=== PATIENT | female | born 1930 | race Caucasian/White ===

== ENCOUNTER 2017-02-24 16:32 | Inpatient (IN) | payer MEDICARE, OTHER ==
--- NOTE | ~2017-02-24 | HP ---
Unit #: [id number] #: [id number] Patient: VITALIY EMANUEL [id number] [address] [place], [place] [address] [id number] I MR#: [id number] NAME: VITALIY EMANUEL ROOM: 43213 Age: 86 Sex: F Admission Date: 02/24/2017 : 1930 Attending Physician: John Canchola M.D. Primary Care Physician: No Primary Care Physician HISTORY AND PHYSICAL One medication blank. CHIEF COMPLAINT Hallucination. HISTORY OF PRESENT ILLNESS The patient is an 86-year-old female with a past medical history of a bladder stone, nephrolithiasis, atrial fibrillation, chronic anticoagulation, hypertension, breast cancer and hypothyroidism, brought from the [facility] with the confusion. The patient is a poor historian and the history is obtained by speaking to the family at the bedside. The patient has been having hallucinations since Wednesday and was trying to get the urine specimen for the last few days. The patient had the similar complaints in the past with the confusion associated with UTI. The patient was brought to the emergency room for further workup. The patient was found to be septic with a lactate of 3.3 and positive UTI. The patient is being admitted for the above reasons, denies any fever or chills, any Poole catheter, nausea or vomiting. PAST MEDICAL HISTORY History of altered mental status, atrial fibrillation, hypertension, breast cancer, hypothyroidism, GERD, depression. PAST SURGICAL HISTORY Right mastectomy, cholecystectomy, left foot surgery, appendectomy, cataract surgery, cystoscopy with lithotripsy. SOCIAL HISTORY The patient is in a senior living. There is no tobacco, alcohol and is Do Not Resuscitate from the records. FAMILY HISTORY Reviewed and none. ALLERGIES Penicillin, azithromycin, meloxicam, levofloxacin. HOME MEDICATIONS She is on Lipitor, levothyroxine, Lasix, Florastor, Flomax, senna, Remeron, Protonix, prednisone, metoprolol, estrovent, Aricept, digoxin, Flexeril, cranberry, Centrum Silver, calcium, Boniva, Tylenol, amiodarone and the anastrazole. Unit #: [id number] #: [id number] Patient: VITALIY EMANUEL REVIEW OF SYMPTOMS Fourteen-point review of symptoms performed and only pertinent positive findings as described above, remaining are negative. PHYSICAL EXAMINATION GENERAL APPEARANCE: On examination the patient is lying on a bed not in acute distress. VITAL SIGNS: Temperature 98.7, pulse 83, respiratory rate 18, blood pressure 137/68, sating 94% at 2 L per nasal cannula. HEENT: Head atraumatic, normocephalic. Pupils equal, round and reacting to light and accommodation. Dry mucous membranes. NECK: Supple. LUNGS: Decreased air entry at the bases. HEART: Irregular rate and rhythm. Positive for murmur. ABDOMEN: Soft, positive bowel sounds. EXTREMITIES: No cyanosis. No clubbing. DIAGNOSTIC STUDIES IMAGING: Chest x-ray shows stable cardiomegaly. There are increased interstitial markings diffusely in both lungs appearing similar to 08/03/16. This could represent a chronic change or recurrent interstitial change such as edema. There is no effusion, no pneumothorax. Bones are osteopenic with no definite rib fracture. There are degenerative changes in the shoulder. There is a mid thoracic compression fracture suggested at approximately T8 which may be new. Consider thoracic spine series. LABORATORY DATA: Glucose 162, BUN 25, creatinine 1.2, sodium 143, potassium 3.8, chloride 93, bicarb 31, calcium 9.5, AST 31, ALT 33, alkaline phosphatase 81, BNP is 190, lactic acid is 3.3, INR is 1.4, WBC is 15.8, hemoglobin 15.2, hematocrit 47.9, platelets 270, neutrophils 80.6, bands 2%. UA shows 2+ leukocyte esterase, trace protein, 3+ blood, 10 to 25 urine WBCs and 4+ urine bacteria. CARDIOVASCULAR: EKG shows normal sinus rhythm at a rate of 81 beats per minute. Left anterior fascicular block. ASSESSMENT 1. Urinary tract infection. 2. Sepsis. 3. Thoracic compression fracture at the level of T8. 4. Hallucination. PLAN 1. Plan to admit the patient to the inpatient with the telemetry. 2. IV antibiotics with the Rocephin. 3. Enterococcus is colonization, no need for vancomycin. 4. Continue with the sepsis protocol. 5. Repeat the labs again in the morning. 6. Pain control for the compression fracture. Further recommendations will follow as more lab results are available. Dictated by Unit #: [id number] #: [id number] Patient: VITALIY EMANUEL M.D. AMA/cf TD: 02/24/2017 16:31 JOB #: [id number] HISTORY AND PHYSICAL Page 1 of 1 X X HISTORY AND PHYSICAL
--- NOTE | ~2017-02-24 | CR72 ---
[facility] A Service of [facility] RADIOLOGY TEXT RESULTS PATIENT: VITALIY EMANUEL LOCATION: [facility] 303-01 : 30 UNIT #: [id number] AGE: [address]: Hans Mojica MD SEX: F ORDER DR: [id number] [facility] [address] [place], [place] [address] [id number] MR#: [id number] Acc #: [id number] NAME: VITALIY EMANUEL : 1930 SEX: F STUDY DATE/TIME: 02/24/2017 14:05 UNIT: [facility] ROOM: STUDY DESCRIPTION: CR Chest Single View Portable Attending Physician: John Kingston M.D. Ordering Physician: John Kingston M.D. Primary Care Physician: Primary Care Physician No MEDICAL IMAGING REPORT This report is preliminary unless electronic signature is present EXAM Chest portable, 02/24/2017 14:05 hours HISTORY 86-year-old woman with 5-week history of increasing confusion. Patient complains of left-sided rib pain today. COMPARISON 07/25/2016 FINDINGS Portable upright chest demonstrates stable heart size which is mildly increased with tortuous atherosclerotic aorta. There are diffusely increased interstitial markings in the lungs appearing similar to 07/25/2016 and may be chronic. There is no pleural effusion or pneumothorax. No definite rib fracture. The bones are osteopenic. Chronic degenerative changes at the shoulders. IMPRESSION Stable cardiomegaly. There are increased interstitial markings diffusely in both lungs appearing similar to 07/25/2016. This could represent a chronic change or recurrent interstitial change such as edema. There are no effusions. No pneumothorax. Bones are osteopenic with no definite rib fracture. There are degenerative changes in the shoulders. There is a mid thoracic compression fractures suggested at approximately T8 which may be new. Consider thoracic spine series. STAT * RESULT [facility] A Service of [facility] RADIOLOGY TEXT RESULTS PATIENT: VITALIY EMANUEL LOCATION: [facility] 303-01 : 30 UNIT #: [id number] AGE: [address]: Hans Mojica MD SEX: F ORDER DR: Dictated by... Kiara Beauchamp M.D. THIS IS AN ELECTRONICALLY VERIFIED REPORT Kiara Beauchamp M.D. at 02/25/2017 9:34 AM MANUEL/glenis TD: 02/24/2017 14:31 JOB #: [id number] MEDICAL IMAGING REPORT Page 1 of 1 COPY
--- NOTE | ~2017-02-24 | CT98 ---
[facility] A Service of [facility] RADIOLOGY TEXT RESULTS PATIENT: VITALIY EMANUEL LOCATION: [facility] 303- : 30 UNIT #: [id number] AGE: [address]: Hans Mojica MD SEX: F ORDER DR: [id number] [facility] [address]. [place], [place] [address] [id number] I MR#: [id number] Acc #: [id number] NAME: VITALIY EMANUEL : 1930 SEX: F STUDY DATE/TIME: 02/25/2017 16:07 UNIT: A [facility] ROOM: 303 STUDY DESCRIPTION: CT Lumbar Spine Wo Cont Attending Physician: Hans Mojica M.D. Ordering Physician: Hans Mojica M.D. Primary Care Physician: No Primary Care Physician MEDICAL IMAGING REPORT This report is preliminary unless electronic signature is present EXAM Lumbar spine CT. DATE OF EXAM 02/25/2017 INDICATIONS Back pain for 1 month. History of breast cancer. TECHNIQUE Axial images were obtained through the lumbar spine without contrast. Multiplanar reformats were obtained. This CT exam was performed with one or more of the following radiation dose reduction techniques: automatic exposure control, adjustment of mA and/or kV according to patient size, and iterative reconstruction. COMPARISON Comparison is made with CT of abdomen and pelvis with reformatted images dated 07/21/2016. FINDINGS Again seen is lumbar levoscoliosis with dextroscoliosis of the thoracic lumbar junction. Old T12 and L1 compression fractures are again seen and appear grossly stable. No new fractures are identified. There is advanced multilevel hypertrophic facet arthropathy. Broad-based disc bulges are present at multiple levels most severe at L4-5, and L5-S1. There is resultant mild foraminal stenosis at both of these levels. There is moderate central stenosis at 4-5 when combined with facet disease. Note is also made of large bilateral nonobstructing renal stones. There is diffuse atherosclerotic disease and there is sigmoid diverticulosis. IMPRESSION Old compression deformities of T12 and L1. There is scoliosis with [facility] A Service of [facility] RADIOLOGY TEXT RESULTS PATIENT: VITALIY EMANUEL LOCATION: [facility] 303-01 : 30 UNIT #: [id number] AGE: [address]: Hans Mojica MD SEX: F ORDER DR: extensive multilevel degenerative facet arthropathy. There are broad-based disc bulges at multiple levels. Central canal stenosis is most severe at L4-5. Overall, the exam is relatively stable from the abdomen and pelvis CT of 07/21/2016. There are no new fractures. Dictated by... Dontrell Up Jr., M.D. THIS IS AN ELECTRONICALLY VERIFIED REPORT Dontrell Up Jr., M.D. at 02/26/2017 8:53 AM BLANK/janeen TD: 02/25/2017 21:31 JOB #: [id number] MEDICAL IMAGING REPORT Page 1 of 1 COPY
--- NOTE | ~2017-02-24 | CO ---
Unit #: [id number] #: [id number] Patient: VITALIY EMANUEL [id number] [address] [address] [id number] I MR#: [id number] NAME: VITALIY EMANUEL ROOM: 303 Age: 86 Sex: F Admission Date: 02/24/2017 : 1930 Attending Physician: Hans Mojica M.D. Primary Care Physician: Donna Primary Care Physician Consultation Date: 02/26/2017 CONSULTATION REPORT CHIEF COMPLAINT Back pain. HISTORY OF PRESENT ILLNESS The patient is an 86 year old admitted for urinary tract infection. She complained of back pain. CT scan of lumbar spine showed severe stenosis at L4-[address] of the thoracic spine showed new fractures of T3, T7, and T12. By history, the patient reports no pain unless she is up. When she is laying flat, she is comfortable. She takes [place] for pain. PAST MEDICAL HISTORY 1. Alzheimer dementia. 2. Urinary tract infection. 3. Atrial fibrillation. 4. High blood pressure. 5. Breast cancer. 6. Hypothyroidism. 7. Gastroesophageal reflux. 8. Depression. 9. Immobility syndrome. MEDICATIONS 1. Prednisone. 2. Flomax. 3. Tylenol. 4. Amiodarone. 5. Coumadin. 6. Lexapro. 7. Arimidex. 8. Digoxin. 9. Toprol. 10. Aricept. 11. Eye drops. 12. Lipitor. 13. Boniva. 14. Florastor. 15. Multivitamin. 16. Aspirin. 17. Protonix. 18. Synthroid. SOCIAL HISTORY She resides in a long term. She is a nonsmoker, nondrinker. Unit #: [id number] #: [id number] Patient: VITALIY EMANUEL REVIEW OF SYSTEMS A 14-point review of systems is negative except for the above complaints. PHYSICAL EXAMINATION She is lying comfortably in her hospital bed. She is neurologically intact. She has venous stasis ulcer type discoloration in both shins, but she is able to move her legs. CLINICAL IMPRESSION 1. Osteoporosis. 2. T7-T12 compression fractures. RECOMMENDATIONS She is not an ideal surgical candidate. I will get her fitted with a TLSO brace. She will require closed treatment requiring brace of the fractures when ambulatory. Once the brace arrives, physical therapy can attempt to mobilize her with the brace. She is cooperative and agreeable to this treatment plan. Dictated by... Giuseppe Rossi/vanessa TD: 02/26/2017 13:40 JOB #: [id number] CONSULTATION REPORT Page 1 of 1 X [place] Lizarraga MD X CONSULTATION REPORT
--- NOTE | ~2017-02-24 | CT57 ---
[facility] A Service of [facility] & [facility] RADIOLOGY TEXT RESULTS PATIENT: VITALIY EMANUEL LOCATION: [facility] 303- : 30 UNIT #: [id number] AGE: [address]: Hans Mojica MD SEX: F ORDER DR: [id number] [facility] [address]. [place], [place] [address] [id number] I MR#: [id number] Acc #: [id number] NAME: VITALIY EMANUEL : 1930 SEX: F STUDY DATE/TIME: 02/26/2017 11:01 UNIT: [facility] ROOM: 303 STUDY DESCRIPTION: CT Chest Wo Cont Attending Physician: Hans Mojica M.D. Ordering Physician: Hans Mojica M.D. Primary Care Physician: Primary Care Physician No MEDICAL IMAGING REPORT This report is preliminary unless electronic signature is present EXAM CT chest without contrast INDICATION Left rib pain for 2 weeks. Patient does have a history of right-sided breast cancer. There is concern for possible metastases. TECHNIQUE Axial CT images were obtained from the thoracic inlet through the dome of the diaphragm. No intravenous contrast material was administered. This CT examination was performed with one or more of the following radiation dose reduction techniques: automatic exposure control, adjustment of mA and/or kV according to patient size, and iterative reconstruction. FINDINGS Ground-glass infiltrates are identified at the lung apices bilaterally. Clinical significance is uncertain. While they could be infectious or inflammatory in nature, short-term follow up is recommended. This patient has some chronic scarring identified at the lung bases bilaterally with some chronic pleural thickening seen at the left lung base unchanged since June 2016. Thyroid gland is atrophic. Trachea is within normal limits as is the esophagus. There is a trace pericardial effusion. Mediastinal lymph nodes do not appear pathologically enlarged. There are dystrophic calcifications seen involving the aortic valve annulus and there are coronary artery calcifications noted as well. Images through the upper abdomen demonstrate bilateral renal stones. I do not see any other acute abnormality within the upper abdomen. Shotty retroperitoneal nodes I do not think are significantly changed when compared to the June exam. Patient does appear to be osteoporotic. No rib fractures are identified. Patient does have some compression fractures at T12, L1, T7 and probably also T3. Please see the separately dictated report of the CT of the thoracic spine from yesterday for full description of these findings. [facility] A Service of [facility] RADIOLOGY TEXT RESULTS PATIENT: VITALIY EMANUEL LOCATION: [facility] 303-01 : 30 UNIT #: [id number] AGE: [address]: Hans Mojica MD SEX: F ORDER DR: IMPRESSION 1. No convincing evidence of metastatic disease to the thorax on these images. I do not see any rib fractures. 2. Also noted but not mentioned in the report are changes of prior right mastectomy. 3. Chronic pleural thickening seen at the left lung base as well as chronic appearing scarring identified at both lung bases. 4. Patchy, ground glass infiltrates seen within the upper lobes bilaterally. These are indeterminate. They may be infectious or inflammatory in etiology but I would suggest short-term CT follow up in 6 months to document stability or resolution. 5. Multiple vertebral compression fractures. Please see the separately dictated reports for the patient's CT of the thoracic spine and CT of the lumbar spine. 6. Please see the body of the report for any other additional incidental findings. Dictated by... Kristi Mack M.D. THIS IS AN ELECTRONICALLY VERIFIED REPORT Kristi Mack M.D. at 02/26/2017 3:27 PM EDI/liliana TD: 02/26/2017 13:53 JOB #: [id number] MEDICAL IMAGING REPORT Page 1 of 1 COPY
--- NOTE | ~2017-02-24 | EKG ---
PATIENT: VITALIY EMANUEL UNIT #: [id number] Ventricular Rate: 81 BPM Atrial Rate: 81 BPM P-R Interval: 208 ms QRS Duration: 100 ms Q-T Interval: 362 ms QTC Calculation(Bezet): 420 ms P Barnwell: 80 degrees Calculated R Barnwell: -80 degrees Calculated T Barnwell: 120 degrees Diagnosis Line: Normal sinus rhythm Diagnosis Line: Left anterior fascicular block Diagnosis Line: Anterolateral infarct (cited on or before Diagnosis Line: 25-JUL-2016) Diagnosis Line: Abnormal ECG Diagnosis Line: When compared with ECG of 25-JUL-2016 14:04, Diagnosis Line: ST now depressed in Anterolateral leads Diagnosis Line: T wave inversion more evident in Inferior leads Diagnosis Line: Inverted T waves have replaced nonspecific T wave Diagnosis Line: abnormality in Anterior leads Diagnosis Line: Confirmed by EDDIE HEATH MD ([id number]) on 02/28/2017 Diagnosis Line: 3:50:20 PM INTERPRETING MD: IVANA JAUREGUI
--- NOTE | ~2017-02-24 | DS ---
Unit #: [id number] #: [id number] Patient: VITALIY EMANUEL [id number] [address] [address] [id number] I MR#: [id number] NAME: VITALIY EMANUEL ROOM: 303 Age: 86 Sex: F Admission Date: 02/24/2017 : 1930 Discharge Date: 02/27/2017 Attending Physician: Hans Mojica M.D. Primary Care Physician: No Primary Care Physician DISCHARGE SUMMARY REASON FOR ADMISSION Hallucinations, mental status change. HISTORY OF PRESENT ILLNESS/HOSPITAL COURSE Patient is a very pleasant 86-year-old female, underlying history of mild to moderate dementia, bladder stone, nephrolithiasis, atrial fibrillation, chronic anticoagulation, hypertension, prior history of breast cancer, details unclear, hypothyroidism, who was transferred from her [facility] secondary to acute onset of confusion. Family was concerned for possible underlying urinary tract infection and therefore she was admitted. During the time that she was in the emergency room it was noted that her urinalysis was positive. She was placed on Rocephin while here. Her initial lactic acid level was noted to be elevated at 3.3. She was initially placed on sepsis protocol. Her vitals did however remain stable. Her sepsis protocol was later discontinued. She was placed on telemetry floor. Blood cultures did not yield an acute bacterial growth. Her final urine culture did reveal E. coli with sensitivity to the aforementioned Rocephin. It also revealed sensitivity to p.o. Bactrim which she will be given a prescription for at the time of discharge for an additional three days. Through her hospital course it was also noted that she complained of back pain and/or discomfort. There was concern on initial chest x-ray of possibility of T7 as well as T12 compression fracture, therefore patient underwent CT thoracic as well as CT lumbar spine studies without contrast that did reveal on CT thoracic spine two visualized compression fractures at the T7 and T12 of at least 50%. Alignment was deemed normal. On patient's CT of lumbar spine without contrast she did have old compression deformities of T12 and L1. In regard to these results, we placed consultation to Dr. Lizarraga of spine services. He recommended TLSO brace but he did he recommend against kyphoplasty given advanced age and associated comorbid conditions. Appropriate brace has been placed. Patient did complain of left-sided chest discomfort underneath her left breast. As she does have a prior history of breast carcinoma, I did Unit #: [id number] #: [id number] Patient: VITALIY EMANUEL become concerned for possibility of metastatic lesions. Therefore, patient underwent CT chest noncontrast on 02/26/2017 which did reveal no convincing evidence of metastatic disease but there was chronic pleural thickening in the left lung base as well as patchy ground glass infiltrates seen in the upper lobes, determined to be indeterminate in nature, infectious versus inflammatory. Short-term CT in six months was recommended. At this point in time the patient is deemed medically stable to be transferred back to fci. She will be discharged with the understanding that she will have followup CT chest noncontrast in three months to be ordered by the fci physician. I will give her a prescription for bacterium p.o. for an additional three days. She is to wear her brace at all times while she is mobilizing and ambulatory. She does not need to wear her brace while she is in bed. FINAL DISCHARGE DIAGNOSES 1. Mental status change, likely secondary to underlying urinary tract infection. 2. Thoracic 7 and thoracic 12 acute compression fracture. 3. Thoracic 12 and lumbar 1 chronic compression fractures. 4. Mild to moderate dementia, likely multifactorial in origin. 5. Atrial fibrillation history. 6. Prior history of transient ischemic attack. 7. Ground-glass infiltrate, either inflammatory versus acute, seen in bilateral upper lobes with outpatient CT recommended in three months. 8. Prior history of breast carcinoma. 9. Chronic deconditioning. 10. Failure to thrive. 11. Hyperlipidemia history. 12. Hypertension. 13. Gastroesophageal reflux disease. 14. Hypothyroidism. FINAL DISCHARGE MEDICATIONS 1. Prednisone 5 mg p.o. daily. 2. Flomax 0.4 mg p.o. daily. 3. Amiodarone 200 mg daily. 4. Tylenol 650 mg p.o. q.6 h. p.r.n. 5. Remeron 7.5 mg p.o. daily. 6. Arimidex 1 mg p.o. daily. 7. Risperdal 0.25 mg p.o. b.i.d. Hold for sedation. 8. Digoxin 125 mcg p.o. daily. 9. Toprol-XL 12.5 mg p.o. daily. 10. Senokot S 8.6 mg p.o. daily. 11. Aricept 5 mg p.o. daily. 12. Lasix 40 mg p.o. daily. 13. Lipitor 10 mg p.o. q.h.s. 14. Boniva 150 mg p.o. q. month. 15. Florastor 250 mg p.o. daily. 16. Multivitamin daily. 17. Protonix 40 mg p.o. daily. 18. Os-Gt 500 plus D one tablet p.o. daily. Unit #: [id number] #: [id number] Patient: VITALIY EMANUEL 19. Flexeril 5 mg p.o. daily p.r.n. only. 20. Synthroid 125 mcg p.o. daily. 21. Estroven p.o. daily. 22. Bactrim single strength one tablet p.o. b.i.d. x3 days. DISCHARGE CONDITION Stable. DISCHARGE DISPOSITION To fci. Dictated by... Giuseppe Young/jonah TD: 02/27/2017 15:08 JOB #: [id number] DISCHARGE SUMMARY Page 1 of 1 X Hans Mojica MD X DISCHARGE SUMMARY
--- NOTE | ~2017-02-24 | CO ---
Unit #: [id number] #: [id number] Patient: ROLLY EMANUEL [id number] [facility]. [place], [place] [address] [id number] I MR#: [id number] NAME: ROLLY EMANUEL ROOM: 303 Age: 86 Sex: F Admission Date: 02/24/2017 : 1930 Attending Physician: Hans Mojica M.D. Consultation Date: 02/26/2017 CONSULTATION REPORT REASON FOR CONSULTATION Hallucination, altered mental status, dementia. HISTORY OF PRESENT ILLNESS Ms. Rolly Emanuel is an 86-year-old white female, seen on 02/26/2017 in room 303 at [facility]. The patient dressed casually, thin built, lying comfortably in bed, somewhat restless. The patient's daughter was at bedside. The patient was able to identify her daughter, but confused, reported in lot of pain. The patient was agitated, anxious, nervous, but denied any suicidal or homicidal ideation, but reported seeing things, seeing rats, visual hallucination. Vital signs; temperature 97.9, pulse 68, respirations 18, and blood pressure 104/58, oxygen saturation 96%. The patient is a resident of retirement, has a good support from family, unable to give coherent history. The patient diagnosed with compression fracture of T3, T7, T12. PAST PSYCHIATRIC HISTORY Remarkable for history of dementia. MEDICAL HISTORY AND MEDICATION HISTORY The patient has a history of Alzheimer dementia, urinary tract infection, atrial fibrillation, hypertension, breast cancer, hypothyroidism, gastroesophageal reflux disease, immobility syndrome. The patient is currently on prednisone, Flomax, Tylenol, amiodarone, Coumadin Lexapro, Arimidex, digoxin, Toprol, Aricept, multivitamin, aspirin, Protonix, and Synthroid. FAMILY HISTORY AND SOCIAL HISTORY The patient has a good support system. The patient resides in a retirement. No history of substance abuse. No history of abuse. REVIEW OF SYSTEMS Complete review of systems is remarkable for confusion and pain. MENTAL STATUS EXAMINATION Vital signs; please see above. General appearance, the patient is thin built, dressed casually in hospital attire, seemed somewhat restless and anxious. Attention span and concentration, poor. Speech, circumstantial. Oriented in self. Mood and affect were labile. Thought process, circumstantial. Thought content, denied any thoughts of harming self or others, but reported visual hallucination. Denied any command hallucination. Recent and remote memory, poor. Language, fair. Fund of knowledge, poor. Insight and judgment, impaired. Unit #: [id number] #: [id number] Patient: ROLLY EMANUEL DIAGNOSES Psychiatric: Major neurocognitive disorder secondary to Alzheimer disease with behavioral disturbances, F02.81; psychosis, not otherwise specified, F29.0. Secondary diagnosis: Deferred. Medical diagnosis: Please refer to H and P. Stressors: Psychosocial stressors. ASSESSMENT/PLAN 1. Supportive psychotherapy and psychoeducation provided to the patient, but the patient unable to comprehend much. 2. Answer all the questions of the patient's daughter, explained about medication, and course and prognosis of illness. Advised at this time to start the patient on Risperdal 0.25 mg b.i.d. and one dose of Risperdal 0.25 mg now. We will continue to follow. Please feel free to call if any questions, telephone #[phone]. Dictated by... Giuseppe Cartagena/jamaal TD: 02/26/2017 21:34 JOB #: [id number] CONSULTATION REPORT Page 1 of 1 X Derrick Frederick MD X CONSULTATION REPORT
--- NOTE | ~2017-02-24 | CT122 ---
[facility] A Service of [facility] RADIOLOGY TEXT RESULTS PATIENT: VITALIY EMANUEL LOCATION: [facility] 303- : 30 UNIT #: [id number] AGE: [address]: Hans Mojica MD SEX: F ORDER DR: [id number] [facility] [place] [facility]. [place], [place] [address] [id number] I MR#: [id number] Acc #: [id number] NAME: VITALIY EMANUEL : 1930 SEX: F STUDY DATE/TIME: 02/25/2017 16:07 UNIT: [address] ROOM: [facility] STUDY DESCRIPTION: CT Thoracic Spine Wo Cont Attending Physician: Hans Mojica M.D. Ordering Physician: Hans Mojica M.D. Primary Care Physician: Primary Care Physician No MEDICAL IMAGING REPORT This report is preliminary unless electronic signature is present EXAM CT scan of the thoracic spine without contrast INDICATIONS Back pain and suspected compression fractures pain for 1 month. COMPARISON None. TECHNIQUE This CT exam was performed with one or more of the following radiation dose reduction techniques: automatic control, adjustment of mA and/or kV according to patient size, and iterative reconstruction. FINDINGS Axial 2 mm images were obtained through the thoracic spine and sagittal and coronal reconstructions were generated. There are at least 2 right-sided renal stones measuring up to 10 mm and 14 mm in diameter. There is a 50% compression fracture of T7. This appears acute. This seemed to be some acute fracture planes visible. The bodies compress about 50% and it is increased in density. T12 shows a more pronounced compression fracture which is possibly new as well. The endplate appears to have some acute compression lines with it. There other vertebral bodies are normal in height except for a minimal loss of height of T3 affecting the superior endplate only. IMPRESSION 1. Compression fractures of T7 and T12 that appear recent. They both compress at least 50%. There may be minimal compression of the superior endplate of T3 as well. 2. The alignment is normal. [facility] A Service [facility] RADIOLOGY TEXT RESULTS PATIENT: VITALIY EMANUEL LOCATION: [facility] 303-01 : 30 UNIT #: [id number] AGE: [address]: Hans Mojica MD SEX: F ORDER DR: 3. There is no bony spinal canal stenosis. 4. Renal stones. Dictated by... Giovani Urias M.D. THIS IS AN ELECTRONICALLY VERIFIED REPORT Giovani Urias M.D. at 02/26/2017 3:28 PM NOEMI/rnr TD: 02/25/2017 19:02 JOB #: [id number] MEDICAL IMAGING REPORT Page 1 of 1 COPY
[2017-02-24 14:40] LABS: URINE SOURCE CLEAN CATCH
[2017-02-24 14:44] LABS: URINE APPEARANCE CLOUDY; URINE BILIRUBIN NEG (NEG); URINE BLOOD 3+ (NEG); URINE COLOR DK YELLOW; URINE GLUCOSE NEG (NEG); URINE KETONE TRACE (NEG); URINE LEUKOCYTE ESTERASE 2+ (NEG); URINE NITRATE NEG (NEG); URINE PROTEIN TRACE (NEG)
[2017-02-24 14:47] LABS: CULTURE INDICATED? YES; URINE BACTERIA AUWI 4+ (NEGATIVE); URINE SQUAMOUS EPITHELIAL CELL OCC /[HPF]
[2017-02-24 14:50] LABS: POC - CKMB 2.4 ng/mL (0.0-7.9); POC - TROPONIN <0.05 ng/mL (<=0.05)
[2017-02-24 14:54] LABS: BASOPHIL% 0.3 % (0-2.5); EOSINOPHIL# 0.1 X10e3 (0-0.7); EOSINOPHIL% 0.5 % (0.0-7.0); HEMATOCRIT 47.9 % (35.0-45.0); HEMOGLOBIN 15.2 gm/dL (12.0-16.0); LYMPHOCYTE# 1.6 X10e3 (1.0-3.5); LYMPHOCYTE% 10.1 % (17.0-45.0); MEAN CELL VOLUME 93.7 FL (83-96); MEAN CORPUSCULAR HEMOGLOBIN 29.8 PG (28-34); MEAN CORPUSCULAR HGB CONC 31.8 g/dL (30-36); MEAN PLATELET VOLUME 9.4 FL (6.5-11.5); MONOCYTE# 1.3 X10e3 (0-1.0); MONOCYTE% 8.5 % (3.0-12.0); NEUTROPHIL# 12.7 X10e3 (1.5-7.1); NEUTROPHIL% 80.6 % (40-75); PLATELET COUNT 270 X10e3 (140-420); RED BLOOD COUNT 5.11 X10e (3.90-5.30); RED CELL DISTRIBUTION WIDTH 16.5 % (11.0-15.5); WHITE BLOOD COUNT 15.8 X10e3 (4.0-10.5)
[2017-02-24 14:58] LABS: DIFF IND YES
[2017-02-24 14:59] LABS: URINE MUCUS PRESENT
[2017-02-24 15:02] LABS: INR 1.4; PROTHROMBIN TIME (PATIENT) 14.9 SECONDS (9.6-11.5)
[2017-02-24 15:08] LABS: BILIRUBIN, DIRECT 0.1 mg/dL (0.0-0.2); BILIRUBIN,INDIRECT 0.8 mg/dL (0.0-0.9); BILIRUBIN,TOTAL 0.9 mg/dL (0.2-2.0); BUN/CREATININE RATIO 20.83; CALCIUM SERUM 9.5 mg/dL (8.4-10.2); CREATININE SERUM 1.2 mg/dL (0.6-1.4); GLOM FILT RATE Estimated 40.9 mL/min (>60); POTASSIUM 3.8 mmol/L (3.5-5.1); PROTEIN TOTAL SERUM 7.8 g/dL (6.0-8.3)
[2017-02-24 15:09] LABS: PLATELET ESTIMATE NORMAL (NORMAL); RBC NORMAL YES
[~2017-02-24 16:32] MED LIST: AMIODARONE HCL200 MG PO; AMIODARONE PO; ANASTROZOLE1 MG PO; ARICEPT5 M2 PO; ARICEPT5 MG PO; ARIMIDEX1 MG PO; ASPIRIN PO; ASPIRIN81 M2 PO; ATIVAN0.5 M1 IV; B-COMPLEX W-VIT1 TAB PO; BONIVA150 MG PO; CALCIUM + D3 E1 EACH PO; CALCIUM 600 +1 EAC1 PO; CENTRUM SILVER PO; CERTAVITE-LUTEI1 TA1 PO; COUMADIN PO; COUMADIN1 MG; COUMADIN1 MG PO; CRANBERRY500 M1 PO; DIGOX125 MCG PO; DIGOXIN125 MCG PO; ESTROVEN PO; FISH OIL 1,0001 CAP PO; FISH OIL 1,0001 EAC1 PO; FLEXERIL PO; FLOMAX0.4 M1 DOB; FLOMAX0.4 M1 PO; FLORASTOR PO; FLORASTOR250 M1 PO; GARLIC PO; GARLIC1 TAB PO; LASIX PO; LATANOPROST2.5 ML OU; LEVO-T125 MCG PO; LEXAPRO PO; LEXAPRO20 MG PO; LIPITOR PO; MAPAP325 M1 PO; MELATONIN5 M1 PO; NEPHROCAPS CAPSU1 MG PO; PACERONE100 MG PO; PREDNISONE10 MG PO; PREDNISONE5 M1 PO; PROTONIX PO; PROTONIX40 M1 PO; REMERON PO; REMERON15 MG PO; SENNA-TABS8.6 MG PO; SENNA8.6 M1 PO; SEROQUEL50 MG DOB; SEROQUEL50 MG PO; SYNTHROID PO; SYNTHROID75 MCG PO; TIMOPTIC 0.5% OP5 ML OD; TIMOPTIC5 ML OP; TIROSINT125 MCG PO; TOPROL XL 50 MG50 M1 PO; TOPROL XL PO; TRAVATAN5 ML OP; TYLENOL325 M1 PO; VAGISIL CREAM28 GM TOP; VESICARE PO; VIT E PO; VITAMIN C PO; VITAMIN C500 M1 PO; VITAMIN D 4001 UDTAB PO; VITAMIN D2000 UNI1 PO; VITAMIN E1000 UNI2 PO; XALATAN OU
[2017-02-25 06:12] LABS: HEMATOCRIT 40.5 % (35.0-45.0); MEAN CORPUSCULAR HEMOGLOBIN 29.2 PG (28-34); MEAN PLATELET VOLUME 8.8 FL (6.5-11.5); RED BLOOD COUNT 4.31 X10e (3.90-5.30); RED CELL DISTRIBUTION WIDTH 16.2 % (11.0-15.5); WHITE BLOOD COUNT 14.8 X10e3 (4.0-10.5)
[2017-02-25 06:18] LABS: HEMOGLOBIN 12.6 gm/dL (12.0-16.0)
[2017-02-25 07:03] LABS: BUN/CREATININE RATIO 23.75; CALCIUM SERUM 8.3 mg/dL (8.4-10.2); CREATININE SERUM 0.8 mg/dL (0.6-1.4); GLOM FILT RATE Estimated 66.8 mL/min (>60); POTASSIUM 3.4 mmol/L (3.5-5.1)
[2017-02-26 04:43] LABS: HEMATOCRIT 42.1 % (35.0-45.0); HEMOGLOBIN 13.1 gm/dL (12.0-16.0); MEAN CELL VOLUME 94.8 FL (83-96); MEAN CORPUSCULAR HEMOGLOBIN 29.6 PG (28-34); MEAN CORPUSCULAR HGB CONC 31.3 g/dL (30-36); MEAN PLATELET VOLUME 9.2 FL (6.5-11.5); RED BLOOD COUNT 4.44 X10e (3.90-5.30); RED CELL DISTRIBUTION WIDTH 16.5 % (11.0-15.5); WHITE BLOOD COUNT 13.2 X10e3 (4.0-10.5)
[2017-02-26 05:02] LABS: BUN/CREATININE RATIO 22.5; CALCIUM SERUM 8.5 mg/dL (8.4-10.2); CREATININE SERUM 0.8 mg/dL (0.6-1.4); GLOM FILT RATE Estimated 66.8 mL/min (>60); POTASSIUM 3.9 mmol/L (3.5-5.1)
[2017-02-27 06:05] LABS: HEMATOCRIT 41.8 % (35.0-45.0); HEMOGLOBIN 13.4 gm/dL (12.0-16.0); MEAN CELL VOLUME 93.1 FL (83-96); MEAN CORPUSCULAR HEMOGLOBIN 29.8 PG (28-34); MEAN PLATELET VOLUME 9.1 FL (6.5-11.5); RED BLOOD COUNT 4.49 X10e (3.90-5.30); RED CELL DISTRIBUTION WIDTH 16.4 % (11.0-15.5); WHITE BLOOD COUNT 16.9 X10e3 (4.0-10.5)
[2017-02-27 06:59] LABS: BUN/CREATININE RATIO 24.44; CALCIUM SERUM 9.2 mg/dL (8.4-10.2); CREATININE SERUM 0.9 mg/dL (0.6-1.4); GLOM FILT RATE Estimated 57.9 mL/min (>60); POTASSIUM 4.1 mmol/L (3.5-5.1)
== END 2017-02-27 22:48 | DRG 689 ==
LOC: CED 16:32 → CEDOF 16:41 → C3A PCU 17:26
PROVIDERS: Emergency Medicine; Family Medicine; Internal Medicine
DX: N39.0 Urinary tract infection, site not specified (principal); G92 Toxic encephalopathy; M48.54XA Collapsed vertebra, not elsewhere classified, thoracic region, initial encounter for fracture; M48.56XA Collapsed vertebra, not elsewhere classified, lumbar region, initial encounter for fracture; G30.9 Alzheimer's disease, unspecified; F02.81 Dementia in other diseases classified elsewhere, unspecified severity, with behavioral disturbance; B96.20 Unspecified Escherichia coli [E. coli] as the cause of diseases classified elsewhere; I48.91 Unspecified atrial fibrillation; I10 Essential (primary) hypertension; E03.9 Hypothyroidism, unspecified; K21.9 Gastro-esophageal reflux disease without esophagitis; F32.9 Major depressive disorder, single episode, unspecified; M62.3 Immobility syndrome (paraplegic); M81.0 Age-related osteoporosis without current pathological fracture; I87.8 Other specified disorders of veins; F29 Unspecified psychosis not due to a substance or known physiological condition; R62.7 Adult failure to thrive; Z86.73 Personal history of transient ischemic attack (TIA), and cerebral infarction without residual deficits; E78.5 Hyperlipidemia, unspecified; Z90.49 Acquired absence of other specified parts of digestive tract; Z88.0 Allergy status to penicillin; Z88.1 Allergy status to other antibiotic agents; Z88.8 Allergy status to other drugs, medicaments and biological substances; Z85.3 Personal history of malignant neoplasm of breast; Z90.11 Acquired absence of right breast and nipple
CPT/HCPCS: 36415; 51702; 71010; 71250; 72128; 72131; 80048; 80076; 81003; 82553; 82607; 83605; 84443; 84484; 85025; 85027; 85610; 85730; 87040; 87086; 87088; 87186; 92610; 93005; 94760; 99285; G8996-GN; G8997-GN; G8998-GN; J0696; J1630; J3370

== ENCOUNTER 2017-03-05 12:15 | Inpatient (IN) | payer MEDICARE, OTHER ==
--- NOTE | ~2017-03-05 | CT57 ---
[facility] A Service of [facility] RADIOLOGY TEXT RESULTS PATIENT: VITALIY EMANUEL LOCATION: [facility] 565-01 : 30 UNIT #: [id number] AGE: [address]: Hans Mojica MD SEX: F ORDER DR: [id number] [facility] [address]. [place], [place] [address] [id number] I MR#: [id number] Acc #: [id number] NAME: VITALIY EMANUEL : 1930 SEX: F STUDY DATE/TIME: 03/06/2017 9:33 UNIT: [facility] ROOM: [facility] STUDY DESCRIPTION: CT Chest Wo Cont Attending Physician: Hans Mojica M.D. Ordering Physician: Hans Mojica M.D. Primary Care Physician: No Primary Care Physician MEDICAL IMAGING REPORT This report is preliminary unless electronic signature is present EXAM CT of the chest without contrast. INDICATION Shortness of breath for 1 week. Bilateral upper lobe infiltrates. Follow up. TECHNIQUE CT of the chest was performed without contrast. Coronal and sagittal reformatted images were obtained. This CT exam was performed with one or more of the following radiation dose reduction techniques: automatic exposure control, adjustment of mA and/or kV according to patient size, and iterative reconstruction. COMPARISON Comparison was made with 02/26/2017. FINDINGS Since the previous study, there has been improvement within the bilateral upper lobe ground-glass infiltrates. There is some persistent mild infiltrate within the anterior left upper lobe on image 30, and also in the right upper lobe on image 19. But, overall, the appearance of the upper lobes has improved. There is mild worsening of the ground-glass infiltrates within the superior segment of the right lower lobe. There is increased linear atelectasis within the dependent portion of the right lower lobe. There is stable atelectasis within the left lower lobe. There is no suspicious lymphadenopathy. There is no pleural effusion. Coronary artery calcifications. Limited imaging of the upper abdomen demonstrates bilateral large nonobstructing kidney stones. Bone windows demonstrate degenerative changes of the spine with stable compression deformities and scoliosis. [facility] A Service of [facility] RADIOLOGY TEXT RESULTS PATIENT: VITALIY EMANUEL LOCATION: [facility] 565-01 : 30 UNIT #: [id number] AGE: [address]: Hans Mojica MD SEX: F ORDER DR: IMPRESSION 1. Since the previous chest CT from 02/26/2017, there has been interval improvement in the appearance of the upper lobes with decrease in ground-glass infiltrates and they are nearly resolved. 2. There is slight worsening of ground-glass infiltrates within the superior segment of the right lower lobe. Dictated by... Sandor Jean M.D. THIS IS AN ELECTRONICALLY VERIFIED REPORT Sandor Jean M.D. at 03/07/2017 3:47 PM CARLOS/janeen TD: 03/06/2017 20:55 JOB #: [id number] MEDICAL IMAGING REPORT Page 1 of 1 COPY
--- NOTE | ~2017-03-05 | EKG ---
PATIENT: VITALIY EMANUEL UNIT #: [id number] Ventricular Rate: 72 BPM Atrial Rate: 72 BPM P-R Interval: 192 ms QRS Duration: 92 ms Q-T Interval: 410 ms QTC Calculation(Bezet): 448 ms P [place]: 80 degrees Calculated R [place]: -73 degrees Calculated T [place]: 8 degrees Diagnosis Line: Normal sinus rhythm Diagnosis Line: Left axis deviation Diagnosis Line: Possible Lateral infarct (cited on or before Diagnosis Line: 25-JUL-2016) Diagnosis Line: Abnormal ECG Diagnosis Line: When compared with ECG of 24-FEB-2017 14:01, Diagnosis Line: Questionable change in initial forces of Anterior Diagnosis Line: leads Diagnosis Line: T wave inversion no longer evident in Anterior Diagnosis Line: leads Diagnosis Line: Confirmed by EDDIE HEATH MD ([id number]) on 03/05/2017 Diagnosis Line: 8:12:15 PM INTERPRETING MD: IVANA JAUREGUI
--- NOTE | ~2017-03-05 | CT71 ---
[facility] A Service of [facility] RADIOLOGY TEXT RESULTS PATIENT: VITALIY EMANUEL LOCATION: [facility] 565-01 : 30 UNIT #: [id number] AGE: [address]: Hans Mojica MD SEX: F ORDER DR: [id number] [facility] [address] [place], [place] [address] [id number] MR#: [id number] Acc #: [id number] NAME: VITALIY EMANUEL : 1930 SEX: F STUDY DATE/TIME: 03/05/2017 14:00 UNIT: [facility] ROOM: STUDY DESCRIPTION: CT Head Wo Contrast Attending Physician: Ruby Gerard M.D. Ordering Physician: Ruby Gerard M.D. Primary Care Physician: No Primary Care Physician MEDICAL IMAGING REPORT This report is preliminary unless electronic signature is present EXAM CT head 03/05/2017 HISTORY Confusion since 03/04/2017 having hallucinations since 03/04/2017. TECHNIQUE CT head performed skull base through vertex without intravenous contrast. This CT exam was performed with one or more of the following radiation dose reduction techniques: automatic exposure control, adjustment of mA and/or kV according to patient size, and iterative reconstruction. COMPARISON STUDIES Comparison 07/25/2016. FINDINGS Brainstem unremarkable. Areas of encephalomalacic change bilateral cerebellar hemispheres are stable and likely reflect prior vascular insults. The cerebellum and cerebral hemispheres show overall preservation of gonzales matter-white matter differentiation. There is no intracranial hemorrhage. No evidence of acute cortical ischemia. Extensive periventricular and deep white matter tract hypodensities bilaterally most consistent with sequelae of chronic microvascular ischemia. 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 Associated encephalomalacic change. Midline structures nondisplaced. No acute-appearing basal ganglia abnormality. Chronic lacunar infarct right putamen. This has developed in the interval from July 2016 but its appearance is clearly chronic in time course. The ventricles, cisterns and sulci show mild to moderate generalized enlargement consistent with generalized atrophy. Visualized paranasal sinuses and mastoid air cells notable for air-fluid levels and opacification in some left mastoid air cells suggesting acute mastoiditis. More pronounced than on prior study. [facility] A Service of [facility] RADIOLOGY TEXT RESULTS PATIENT: VITALIY EMANUEL [id number] UNIT #: [id number] AGE: [address]: Hans Mojica MD SEX: F ORDER DR: No fracture. IMPRESSION 1. No clearly acute abnormality seen in brain. If patient has ongoing neurologic symptoms, consider follow up imaging, preferably with MRI if patient is candidate. 2. Chronic changes in brain include following: Mild to moderate generalized atrophy, extensive periventricular and deep white matter tract probable sequelae of chronic microvascular ischemia, chronic infarcts in the right parietal vertex and bilateral cerebellar hemispheres, chronic lacunar infarct right putamen, cavernous carotid and distal vertebral arterial calcifications. 3. Opacification of a few left mastoid air cells with air-fluid levels present suggesting acute left mastoiditis. Dictated by... North Reeves M.D. THIS IS AN ELECTRONICALLY VERIFIED REPORT North Reeves M.D. at 03/08/2017 8:19 PM [place] TD: 03/05/2017 18:21 JOB #: [id number] MEDICAL IMAGING REPORT Page 1 of 1 COPY
--- NOTE | ~2017-03-05 | HP ---
Unit #: [id number] #: [id number] Patient: VITALIY EMANUEL [id number] [facility] [place] [facility]. [place], [place] [address] [id number] I MR#: [id number] NAME: VITALIY EMANUEL ROOM: 31827 Age: 86 Sex: F Admission Date: 03/05/2017 : 1930 Attending Physician: Yvrsoe Deshpande M.D. Primary Care Physician: Primary Care Physician No HISTORY AND PHYSICAL CHIEF COMPLAINT Altered mental status. HISTORY OF PRESENT ILLNESS The patient is an 86-year-old female with past medical history of atrial fibrillation, chronic anticoagulation, hypertension, bladder stone, breast cancer, hypothyroidism, GERD, depression, dementia, who presented to the emergency department from the long term for evaluation of the above. Of note, the patient was hospitalized at [facility] 02/24 through 02/27/2017 for altered mental status and sepsis secondary to urinary tract infection. Urine culture from that admission grew greater than 100,000 E coli that was pansensitive. She was discharged to the long term on Bactrim for an additional three days. The patient's daughter is at bedside. She states that she was doing well for a couple of days. On the day prior to admission, she started having increasing confusion with visual hallucinations. She, per the daughter, did not have any fever, no cough or cold symptoms. She was not complaining of abdominal pain. She had been eating, no vomiting, no difficulty with swallowing. The patient's daughter states that it is similar to when she has had a urinary tract infection in the past. In the emergency department, initial temperature was 98.5, pulse 75, blood pressure 126/61, oxygen saturation was 88% on room air. Chest x-ray showed possible edema with stable mild cardiomegaly. Urinalysis shows findings concerning for possible urinary tract infection. She was given 1 liter of normal saline as well as 2 grams of Rocephin. Additionally, she received 5 mg of Mauldin. She is being admitted to [facility] for evaluation and further treatment. PAST MEDICAL HISTORY 1. Admission to [facility] 02/24 through 02/27/2017 for altered mental status secondary to urinary tract infection and sepsis. She was discharged to the long term on Bactrim. During that hospital stay, a CT of the chest was done and showed ground-glass infiltrates within the upper lobes infectious versus inflammatory in etiology. Short-term CT follow up in six months was recommended. Additionally, she was found to have several compression fractures. She was apparently seen in consultation by Dr. Lizarraga. A brace was recommended. He recommended against kyphoplasty given age and associated comorbid conditions. 2. Atrial fibrillation, previously on chronic anticoagulation with Coumadin. The patient's daughter was not aware that Coumadin had Unit #: [id number] #: [id number] Patient: VITALIY EMANUEL been discontinued. Review of [facility] shows that the patient was discharged on 07/27/2016 back to the long term on Coumadin. However, the History and Physical from 02/24/2017 does not include Coumadin as a home medication nor does the discharge summary from 02/27/2017 list Coumadin as a discharge medication. It is unclear if she was taken off this medication at the long term. This will need to be clarified. 3. Hypertension. 4. History of bladder stone. 5. Breast cancer, status post mastectomy. 6. Hypothyroidism. 7. GERD. 8. Depression. 9. Dementia. PAST SURGICAL HISTORY 1. Right mastectomy. 2. Cholecystectomy. 3. Left foot surgery. 4. Appendectomy. 5. Cataract surgery. 6. Cystoscopy with lithotripsy. ALLERGIES 1. Penicillin. 2. Azithromycin. 3. Meloxicam. 4. Levofloxacin. HOME MEDICATIONS Include: 1. Senna. 2. Remeron. 3. Protonix. 4. Prednisone. 5. Toprol XL. 6. Lipitor. 7. Levothyroxine. 8. Lasix. 9. Florastor. 10. Flomax. 11. Estroven. 12. Aricept. 13. Digoxin. 14. Flexeril. 15. Cranberry. 16. Centrum Silver. 17. Calcium plus D. 18. Boniva. 19. Tylenol. 20. Amiodarone. 21. Anastrazole. 22. Coumadin. 23. Latanoprost eye drops. 24. Macrodantin. 25. Hydrocodone/acetaminophen. 26. Risperdal. Unit #: [id number] #: [id number] Patient: VITALIY EMANUEL Home medications will need to be reviewed and verified. SOCIAL HISTORY The patient is in a long term. She is in a wheelchair. There is no tobacco or alcohol use. Her code status is a DO NOT RESUSCITATE. FAMILY HISTORY Noncontributory secondary to age. REVIEW OF SYSTEMS A complete review of systems is somewhat limited from the patient due to altered mental status but negative except as indicated in the HPI per family. PHYSICAL EXAMINATION VITAL SIGNS: Temperature 98.5, pulse 75, respirations 19, blood pressure 126/61, oxygen saturation 88% on room air. GENERAL: The patient is a female who is awake and alert, she is inattentive and somewhat restless. HEENT: Head is atraumatic. Mucous membranes are moist. NECK: Supple. Trachea is midline. LUNGS: Decreased breath sounds bilaterally. Breathing is not labored. HEART: Regular rate and rhythm. ABDOMEN: Soft, nontender. Bowel sounds present in all four quadrants. EXTREMITIES: Nontender with no pedal edema. NEUROLOGIC: Patient is oriented to person only. She knows she is in a hospital bed but thought she was at [facility]. She does not know the year. She follows commands. PSYCHIATRIC: Patient is cooperative. She is mildly agitated and is picking at various items in her bed. DIAGNOSTIC STUDIES LABORATORY: Troponin is less than 0.05. Urinalysis is notable for 1+ leukocyte esterase, 1+ blood, 10-25 rbc's, 5-10 wbc's. Complete blood count notable for white blood cell count of 11.2. INR 1.1. Lactic acid 1.2. Digoxin level 1.6. Comprehensive metabolic panel notable for chloride 94, CO2 is 36, AST 95, ALT 113, albumin 3.4. IMAGING: CT of the head shows nothing acute. Chest x-ray shows stable cardiomegaly and possible increase in vascular congestion. CARDIOVASCULAR: EKG shows normal sinus rhythm with rate of 72 beats per minute. ASSESSMENT The patient is an 86-year-old female with: 1. Altered mental status. 2. Possible urinary tract infection. The patient had a urine culture 02/24/2017 that grew greater than 100,000 E coli that was pansensitive. 3. Possible congestive heart failure. Chest x-ray is showing congestion. She is on Lasix from the long term. I do not see an echocardiogram in [facility]. The family was not aware of her ever being diagnosed with congestive heart failure. 4. Acute respiratory failure, hypoxic with oxygen saturation 88% on room air. Unit #: [id number] #: [id number] Patient: VITALIY EMANUEL 5. Transaminitis, possible passive congestion. 6. Atrial fibrillation, currently in sinus rhythm. 7. Chronic anticoagulation with Coumadin. The patient, on the list from the long term, is on Coumadin 1 mg daily. However, INR is subtherapeutic at 1.1. 8. Hypertension. 9. History of bladder stone. 10. Breast cancer, status post mastectomy. 11. Hypothyroidism. 12. Gastroesophageal reflux disease. 13. Depression. 14. Dementia. 15. History of compression fractures. Back brace was recommended. PLAN 1. Admit to intermediate level. 2. 2-gram sodium 1800 fluid restricted heart healthy diet if passes bedside swallow. 3. TSH, B12 and folate. 4. Neuro checks. 5. Bedrest and fall precautions. 6. Blood cultures x2. 7. Urine culture and sensitivity on urine in the lab. 8. Rocephin 1 gram IV daily pending results of urine culture. 9. 2D echo if not done within the past year. 10. Check BNP. 11. Strict I's and O's. 12. Daily weights. 13. Will change home dose of Lasix to IV (40 mg IV daily) with first dose now. 14. Serial cardiac enzymes. 15. Repeat labs in the morning including INR. 16. May need to adjust Coumadin. 17. Regarding code status, the patient is a DO NOT RESUSCITATE. Dictated by Yvrose Deshpande M.D. NEIDA/chari TD: 03/05/2017 20:57 JOB #: [id number] HISTORY AND PHYSICAL Page 1 of 1 X Yvrose Deshpande MD X HISTORY AND PHYSICAL
--- NOTE | ~2017-03-05 | DS ---
Unit #: [id number] #: [id number] Patient: VITALIY EMANUEL [id number] [address] [place], [place] [address] [id number] MR#: [id number] NAME: VITALIY EMANUEL ROOM: 56 Age: 86 Sex: F Admission Date: 03/05/2017 : 1930 Discharge Date: 03/08/2017 Attending Physician: Hans Mojica M.D. Primary Care Physician: No Primary Care Physician DISCHARGE SUMMARY REASON FOR ADMISSION Altered mental status. HISTORY OF PRESENT ILLNESS/HOSPITAL COURSE The patient is a very pleasant 86-year-old female with underlying history of atrial fibrillation, not on chronic anticoagulation secondary to fall risk, hypertension, breast carcinoma, hypothyroidism, gastroesophageal reflux disease, depression and moderate to severe dementia. The patient presented secondary to mental status change. She had recently been admitted to our hospital in the early part of February for similar circumstances secondary to urinary tract infection. Apparently she was discharged at that point in time and treated appropriately on antibiotics. However, while she was at the rehab facility she began developing mental status change and/or decline and subsequently presented back to the hospital for further evaluation. Chest x-ray initially performed in the emergency room read the possibility of edema, stable mild cardiomegaly, but she was hypoxic. Urinalysis was mildly positive as well. She was initially given 1 liter of normal saline, Rocephin and evaluated through her hospital course. Her final urine culture did not reveal any acute bacterial growth. Blood cultures through her hospital stay did not yield any bacterial growth as well. Cardiac enzymes were cycled and otherwise unremarkable. CT of the chest without contrast was performed on 03/06/2017 in regard to followup secondary to upper lobe ground glass infiltrates, which were seen on previous admission. These are likely felt to be secondary to inflammatory response and likely nonspecific, but a close outpatient followup was recommended with repeat CT noncontrast chest in six months. Of note, however, that was a slight worsening of ground glass infiltrates in the superior segment of the right lower lobe and consideration for possible aspiration pneumonia consultation was placed to speech therapy services. The patient underwent video function swallow study this morning and recommendation was made to change to regular consistency, no mixed consistency, thin liquids and other dietary restrictions were ordered. Please see speech therapy for modification. These modifications will be continued at the time of discharge. Plans were reviewed with the patient's daughter, at bedside. Overall, unfortunately her long-term prognosis and quality of life are poor. She is essentially bedbound. She does have a history of T7 and T12 Unit #: [id number] #: [id number] Patient: VITALIY EMANUEL compression fractures, for which she is a non-kyphoplasty candidate. She will be transitioned back to rehab and long-term care for ongoing care. She currently is medically stable. FINAL DISCHARGE DIAGNOSES 1. Mental status changes. Likely secondary to pneumonia. Probable aspiration. 2. Dysphagia with appropriate dietary/speech modification as detailed above. 3. Community acquired pneumonia/aspiration pneumonia. 4. T7 and T12 compression fractures, not kyphoplasty candidate. 5. Atrial fibrillation. No longer on chronic anticoagulation. 6. Hypertension. 7. Breast carcinoma, status post mastectomy. 8. Hypothyroidism. 9. Gastroesophageal reflux disease. 10. Depression. 11. Moderate to severe dementia. 12. Failure to thrive. 13. Chronic immobility syndrome, essentially bedbound. FINAL DISCHARGE MEDICATIONS 1. Flomax 0.4 mg p.o. daily. 2. Amiodarone 200 mg p.o. daily. 3. Tylenol 650 mg p.o. q.6 h. p.r.n. 4. Anastrazole 1 mg p.o. daily. 5. Risperdal 0.25 mg p.o. b.i.d. 6. Digoxin 125 mcg p.o. daily. 7. Toprol XL 12.5 mg p.o. daily. 8. Senokot 8.6 mg p.o. daily. 9. Aricept 5 mg p.o. daily. 10. Lasix 20 mg p.o. daily. 11. Dilantin eyedrops as directed. 12. Lipitor 10 mg p.o. at nighttime. 13. Cranberry capsule, 1 capsule p.o. daily. 14. Boniva 150 mg p.o. q. month. 15. Florastor 250 mg p.o. daily. 16. Multivitamin daily. 17. Protonix 40 mg p.o. daily. 18. Os-Gt daily. 19. Synthroid 125 mcg p.o. daily. 20. Doxycycline 100 mg p.o. b.i.d. times 10 days. 21. Argillite 5/325 mg 1 tablet p.o. b.i.d. p.r.n. pain. DISCHARGE CONDITION Stable. DISPOSITION Rehab/long-term care. PROGNOSIS Overall long-term prognosis guarded. Dictated by... Hans Mojica M.D. Unit #: [id number] #: [id number] Patient: VITALIY EMANUEL ISN/gz TD: 03/08/2017 13:54 JOB #: [id number] DISCHARGE SUMMARY Page 1 of 1 X Hans Mojica MD X DISCHARGE SUMMARY
--- NOTE | ~2017-03-05 | CR72 ---
[facility] A Service of [facility] RADIOLOGY TEXT RESULTS PATIENT: VITALIY EMANUEL LOCATION: [place] [address] : 30 UNIT #: [id number] AGE: [address]: Hans Mojica MD SEX: F ORDER DR: [id number] [facility] [address]. [place], [place] [address] [id number] MR#: [id number] Acc #: [id number] NAME: VITALIY EMANUEL : 1930 SEX: F STUDY DATE/TIME: 03/05/2017 1318 UNIT: [facility] ROOM: STUDY DESCRIPTION: CR Chest Single View Portable Attending Physician: Ruby Gerard M.D. Ordering Physician: Ruby Gerard M.D. Primary Care Physician: No Primary Care Physician MEDICAL IMAGING REPORT This report is preliminary unless electronic signature is present EXAM Chest portable 03/05/2017 1318 hours CLINICAL HISTORY 86-year-old woman with altered mental status, shortness of air and frequent urinary tract infections. Patient's symptoms since yesterday. COMPARISON Chest CT 02/26/2017 FINDINGS Portable upright film demonstrates slightly low lung volumes. There is stable mild cardiomegaly and atherosclerotic change in the aorta. There is mild diffuse interstitial change in the lungs concerning for edema. This appears new or increased from lead mason tender image of CT chest 02/26/2017. No pleural effusion is seen. IMPRESSION There is diffuse interstitial prominence in the lungs appearing increased from CT chest 02/26/2017. Finding is concerning for interstitial edema. There is stable mild cardiomegaly. No effusions. Dictated by... Kiara Beauchamp M.D. THIS IS AN ELECTRONICALLY VERIFIED REPORT Kiara Beauchamp M.D. at 03/08/2017 9:01 AM Selvin TD: 03/05/2017 16:39 JOB #: [id number] MEDICAL IMAGING REPORT [facility] A Service of [facility] RADIOLOGY TEXT RESULTS PATIENT: VITALIY EMANUEL LOCATION: [facility] [id number] : 30 UNIT #: [id number] AGE: [address]: Hans Mojica MD SEX: F ORDER DR: Page 1 of 1 COPY
[2017-03-05 13:10] LABS: URINE SOURCE CLEAN CATCH
[2017-03-05] MEDS ORDERED: JANTOVEN1 MG (13:12)
[2017-03-05] MEDS ORDERED: COUMADIN1 MG PO (13:12)
[2017-03-05] MEDS ORDERED: LATANOPROST2.5 ML OU (13:13)
[2017-03-05] MEDS ORDERED: MACRODANTIN25 MG PO (13:14)
[2017-03-05] MEDS ORDERED: HYDROCODON-ACE1 EAC7 PO (13:15)
[2017-03-05 13:16] LABS: URINE APPEARANCE CLEAR; URINE BILIRUBIN NEG (NEG); URINE BLOOD 1+ (NEG); URINE COLOR DK YELLOW; URINE GLUCOSE NEG (NEG); URINE KETONE TRACE (NEG); URINE LEUKOCYTE ESTERASE 1+ (NEG); URINE NITRATE NEG (NEG); URINE PROTEIN NEG (NEG); URINE SPECIFIC GRAVITY 1.021 (1.003-1.035)
[2017-03-05] MEDS ORDERED: CALCIUM 500 +1 EAC2 PO (13:16)
[2017-03-05] MEDS ORDERED: RISPERIDONE PO (13:16)
[2017-03-05 13:17] LABS: BASOPHIL% 0.4 % (0-2.5); EOSINOPHIL# 0.2 X10e3 (0-0.7); EOSINOPHIL% 1.5 % (0.0-7.0); HEMATOCRIT 43.6 % (35.0-45.0); HEMOGLOBIN 14.2 gm/dL (12.0-16.0); LYMPHOCYTE# 0.9 X10e3 (1.0-3.5); LYMPHOCYTE% 8.1 % (17.0-45.0); MEAN CELL VOLUME 91.9 FL (83-96); MEAN CORPUSCULAR HEMOGLOBIN 29.9 PG (28-34); MEAN CORPUSCULAR HGB CONC 32.5 g/dL (30-36); MEAN PLATELET VOLUME 8.4 FL (6.5-11.5); MONOCYTE# 0.9 X10e3 (0-1.0); MONOCYTE% 7.7 % (3.0-12.0); NEUTROPHIL# 9.2 X10e3 (1.5-7.1); NEUTROPHIL% 82.3 % (40-75); PLATELET COUNT 284 X10e3 (140-420); RED BLOOD COUNT 4.74 X10e (3.90-5.30); RED CELL DISTRIBUTION WIDTH 16.1 % (11.0-15.5); WHITE BLOOD COUNT 11.2 X10e3 (4.0-10.5)
[2017-03-05] MEDS ORDERED: TYLENOL325 M1 PO (13:17)
[2017-03-05 13:18] LABS: CULTURE INDICATED? YES; URINE BACTERIA AUWI NEG (NEGATIVE); URINE SQUAMOUS EPITHELIAL CELL FEW /[HPF]
[2017-03-05 13:28] LABS: URINE MUCUS PRESENT
[2017-03-05 13:30] LABS: POC - CKMB 1.2 ng/mL (0.0-7.9); POC - TROPONIN <0.05 ng/mL (<=0.05)
[2017-03-05 13:34] LABS: DIFF IND NO; INR 1.1; PARTIAL THROMBOPLASTIN TIME 22.6 SECONDS (23.5-31.3); PROTHROMBIN TIME (PATIENT) 11.3 SECONDS (9.6-11.5)
[2017-03-05 14:12] LABS: ALBUMIN SERUM 3.4 g/dL (3.5-5.0); BILIRUBIN, DIRECT 0.1 mg/dL (0.0-0.2); BILIRUBIN,INDIRECT 0.3 mg/dL (0.0-0.9); BILIRUBIN,TOTAL 0.4 mg/dL (0.2-2.0); BUN/CREATININE RATIO 19.16; CALCIUM SERUM 9.3 mg/dL (8.4-10.2); CREATININE SERUM 1.2 mg/dL (0.6-1.4); GLOM FILT RATE Estimated 40.9 mL/min (>60); POTASSIUM 4.4 mmol/L (3.5-5.1); PROTEIN TOTAL SERUM 6.7 g/dL (6.0-8.3)
[2017-03-05 15:16] LABS: POC - CKMB <1.0 ng/mL (0.0-7.9); POC - TROPONIN <0.05 ng/mL (<=0.05)
[2017-03-05 20:48] LABS: FOLATE (FOLIC ACID) >23.6 ng/mL (>5.8)
[2017-03-05 22:07] LABS: CK TOTAL 15 IU/L (26-140)
[2017-03-06 06:04] LABS: BASOPHIL% 0.2 % (0-2.5); EOSINOPHIL# 0.2 X10e3 (0-0.7); EOSINOPHIL% 1.1 % (0.0-7.0); HEMATOCRIT 39.8 % (35.0-45.0); HEMOGLOBIN 12.3 gm/dL (12.0-16.0); LYMPHOCYTE# 1.2 X10e3 (1.0-3.5); LYMPHOCYTE% 8.3 % (17.0-45.0); MEAN CELL VOLUME 93.9 FL (83-96); MEAN CORPUSCULAR HGB CONC 30.9 g/dL (30-36); MEAN PLATELET VOLUME 8.6 FL (6.5-11.5); MONOCYTE# 0.9 X10e3 (0-1.0); MONOCYTE% 6.2 % (3.0-12.0); NEUTROPHIL% 84.2 % (40-75); PLATELET COUNT 260 X10e3 (140-420); RED BLOOD COUNT 4.25 X10e (3.90-5.30); RED CELL DISTRIBUTION WIDTH 15.9 % (11.0-15.5); WHITE BLOOD COUNT 14.3 X10e3 (4.0-10.5)
[2017-03-06 06:08] LABS: DIFF IND NO
[2017-03-06 06:32] LABS: CK TOTAL 27 IU/L (26-140)
[2017-03-06 07:03] LABS: BILIRUBIN,TOTAL 0.7 mg/dL (0.2-2.0); CALCIUM SERUM 8.8 mg/dL (8.4-10.2); POTASSIUM 3.7 mmol/L (3.5-5.1); PROTEIN TOTAL SERUM 6.3 g/dL (6.0-8.3)
[2017-03-07 08:36] LABS: HEMATOCRIT 41.2 % (35.0-45.0); MEAN CELL VOLUME 93.8 FL (83-96); MEAN CORPUSCULAR HEMOGLOBIN 29.7 PG (28-34); MEAN CORPUSCULAR HGB CONC 31.7 g/dL (30-36); MEAN PLATELET VOLUME 8.2 FL (6.5-11.5); RED BLOOD COUNT 4.39 X10e (3.90-5.30); RED CELL DISTRIBUTION WIDTH 16.3 % (11.0-15.5); WHITE BLOOD COUNT 9.9 X10e3 (4.0-10.5)
[2017-03-07 09:06] LABS: BUN/CREATININE RATIO 22.22; CALCIUM SERUM 8.8 mg/dL (8.4-10.2); CREATININE SERUM 0.9 mg/dL (0.6-1.4); GLOM FILT RATE Estimated 57.9 mL/min (>60); POTASSIUM 3.9 mmol/L (3.5-5.1)
== END 2017-03-08 22:37 | DRG 177 ==
LOC: CED 12:15 → C5C 19:30 → CEDOF 19:30 → CED 19:48 → CEDOF 19:48 → C5C 22:37
PROVIDERS: Emergency Medicine; Family Medicine
PROC: B24BZZZ Ultrasonography of Heart with Aorta (ICD-10-PCS; principal; 2017-03-05)
DX: J69.0 Pneumonitis due to inhalation of food and vomit (principal); J96.01 Acute respiratory failure with hypoxia; G92 Toxic encephalopathy; R13.10 Dysphagia, unspecified; I48.91 Unspecified atrial fibrillation; I10 Essential (primary) hypertension; Z91.81 History of falling; E03.9 Hypothyroidism, unspecified; K21.9 Gastro-esophageal reflux disease without esophagitis; F32.9 Major depressive disorder, single episode, unspecified; F03.90 Unspecified dementia, unspecified severity, without behavioral disturbance, psychotic disturbance, mood disturbance, and anxiety; M48.54XD Collapsed vertebra, not elsewhere classified, thoracic region, subsequent encounter for fracture with routine healing; M62.3 Immobility syndrome (paraplegic); R62.7 Adult failure to thrive; Z66 Do not resuscitate; R74.0 Nonspecific elevation of levels of transaminase and lactic acid dehydrogenase [LDH]; Z90.49 Acquired absence of other specified parts of digestive tract; Z88.0 Allergy status to penicillin; Z88.1 Allergy status to other antibiotic agents; Z88.8 Allergy status to other drugs, medicaments and biological substances; Z90.11 Acquired absence of right breast and nipple; Z85.3 Personal history of malignant neoplasm of breast
CPT/HCPCS: 51702; 70450; 71010; 71250; 74230; 80048; 80053; 80076; 80162; 81003; 82550; 82553; 82607; 82746; 83605; 83880; 84443; 84484; 85025; 85027; 85610; 85730; 87040; 87086; 92611; 93005; 93306; 99285; G8996-GN; G8997-GN; J0696